=== PATIENT | male | born 1945 | race Caucasian/White ===

== ENCOUNTER → 2017-01-11 | Outpatient (CLI) | payer MEDICARE, BC | END | disposition home or self-care (01) | LOC: PCVCCLINIC 13:32 | PROVIDERS: ATTEND Internal Medicine | DX: I25.10 Atherosclerotic heart disease of native coronary artery without angina pectoris (principal); I35.0 Nonrheumatic aortic (valve) stenosis; I65.29 Occlusion and stenosis of unspecified carotid artery; I10 Essential (primary) hypertension; E78.5 Hyperlipidemia, unspecified; E11.9 Type 2 diabetes mellitus without complications | CPT/HCPCS: G0463 ==

== ENCOUNTER → 2017-07-05 | Outpatient (CLI) | payer MEDICARE, BC ==
--- NOTE | 2017-07-05 10:40 | PCVCIMAG ---
APPROVED REPORT Study performed: 07/05/2017 09:22:59 EXAM: Comprehensive 2D, Doppler, and color-flow Echocardiogram Patient Location: Echo lab Status: routine BSA: 2.30 HR: 55 bpmBP: 136/84 mmHg Rhythm: NSR Other Information Study Quality: Adequate Risk Factors: Cardiac Risk Factors: HTN, Hyperlipidemia, DM Indications Aortic Valve Disease Diabetes CAD S/P CABG. AORTIC STENOSIS 2D Dimensions LVEF(%): 65.97 (>50%) IVSd: 13.72 (7-11mm)LVOT Diam: 25.66 (18-24mm) LVDd: 54.27 mm PWd: 12.08 (7-11mm)Ascending Ao: 34.73 (22-36mm) LVDs: 34.36 (25-40mm) Left Atrium: 38.34 (27-40mm) Aortic Root: 28.25 mm LV Single Plane 4CH: 55.50 % LV Single Plane 2CH: 74.78 %Chilel's LVEF: 65.14 % Biplane EF: 67.5 % Volumes Left Atrial Volume (Systole) Single Plane 4CH: 64.21 mLSingle Plane 2CH: 94.27 mL Biplane LA Volume: 87.00 mLLA ESV Index: 38.00 mL/m2 Aortic Valve AoV Peak Darrian.: 3.37 m/s AO Peak Gr.: 44.53 mmHgLVOT Max P.92 mmHg AO Mean Gr.: 25.92 mmHgLVOT Mean P.98 mmHg AO V2 Mean: 2.41 m/sLVOT Max V: 0.93 m/s AO V2 VTI: 81.62 cm CARMEN (VTI): 1.39 [id number] V1 VTI: 22.00 cm CARMEN Vmax: 1.43 cm2 Mitral Valve E/A Ratio: 0.8 MV Decel. Time: 224.81 ms MV E Max Darrian.: 0.56 m/s MV A Darrian.: 0.68 m/s MV PHT: 65.19 ms IVRT: 100.35 ms TDI E/Lateral E': 5.60E/Medial E': 9.33 Medial E' Darrian.: 0.06 m/s Lateral E' Darrian.: 0.10 m/s Pulmonary Valve PV Peak Darrian.: 1.17 m/sPV Peak Gr.: 5.50 mmHg Pulmonary Vein P Vein S: 0.70 m/sP Vein A: 0.32 m/s P Vein D: 0.67 m/sP Vein A Dur.: 103.8 msec P Vein S/D Ratio: 1.04 Tricuspid Valve TR Peak Darrian.: 2.51 m/s TR Peak Gr.: 25.25 mmHg TV Vmax: 0.66 m/sPA Pressure: 25.00 mmHg Left Ventricle The left ventricle is normal size. There is normal LV segmental wall motion. Mild concentric left ventricular hypertrophy. Left ventricular systolic function is normal. The left ventricular ejection fraction is within the normal range. LVEF is 65-70%. Grade I - abnormal relaxation pattern. Right Ventricle The right ventricle is normal size. The right ventricular systolic function is normal. Atria Left atrium is mildly dilated. The right atrium size is normal. Aortic Valve Aortic valve is probably trileaflet, moderate aortic valve calcification Trace aortic regurgitation. Calculated aortic valve area is 1.3 cm2 with maximum pressure gradient of 40 mmHg and mean pressure gradient of 26 mmHg. Mitral Valve The mitral valve is normal in structure. There is no mitral valve regurgitation noted. No evidence of mitral valve stenosis. Tricuspid Valve The tricuspid valve is normal in structure. There is no tricuspid valve regurgitation noted. Pulmonic Valve The pulmonary valve is normal in structure. There is no pulmonic valvular regurgitation. Great Vessels The aortic root is normal in size. The ascending aorta is normal in size. IVC is normal in size and collapses with >50% inspiration Pericardium There is no pericardial effusion. There is no pleural effusion. <Conclusion> Left ventricular systolic function is normal. Mild concentric left ventricular hypertrophy. There is normal LV segmental wall motion. LVEF is 65-70%. Grade I - abnormal relaxation pattern. Aortic valve is probably trileaflet, moderate aortic valve calcification, moderate stenosis. Calculated aortic valve area is 1.3 cm2 with maximum pressure gradient of 40 mmHg and mean pressure gradient of 26 mmHg. The mitral valve is normal in structure. No mitral valve regurgitation noted. There is no pericardial effusion.
== END | disposition home or self-care (01) ==
LOC: PCVCIMAG 09:11
PROVIDERS: ATTEND Internal Medicine
DX: I25.10 Atherosclerotic heart disease of native coronary artery without angina pectoris (principal); I35.0 Nonrheumatic aortic (valve) stenosis; E78.2 Mixed hyperlipidemia; K70.30 Alcoholic cirrhosis of liver without ascites; E11.9 Type 2 diabetes mellitus without complications; I12.9 Hypertensive chronic kidney disease with stage 1 through stage 4 chronic kidney disease, or unspecified chronic kidney disease; N18.9 Chronic kidney disease, unspecified; Z95.1 Presence of aortocoronary bypass graft; Z86.718 Personal history of other venous thrombosis and embolism; Z79.82 Long term (current) use of aspirin; Z79.84 Long term (current) use of oral hypoglycemic drugs; Z79.899 Other long term (current) drug therapy; Z87.891 Personal history of nicotine dependence
CPT/HCPCS: 80061; 93005; 93306; G0463

== ENCOUNTER → 2018-01-03 | Outpatient (CLI) | payer MEDICARE, BC | END | disposition home or self-care (01) | LOC: PCVCCLINIC 11:34 | DX: I25.10 Atherosclerotic heart disease of native coronary artery without angina pectoris (principal); I35.0 Nonrheumatic aortic (valve) stenosis; E78.2 Mixed hyperlipidemia; I10 Essential (primary) hypertension; K70.30 Alcoholic cirrhosis of liver without ascites; R94.31 Abnormal electrocardiogram [ECG] [EKG]; Z95.1 Presence of aortocoronary bypass graft; Z87.891 Personal history of nicotine dependence; Z79.899 Other long term (current) drug therapy; Z79.82 Long term (current) use of aspirin; Z79.84 Long term (current) use of oral hypoglycemic drugs | CPT/HCPCS: 80061; 93005; G0463 ==

== ENCOUNTER → 2018-07-11 | Outpatient (CLI) | payer MEDICARE, BC ==
--- NOTE | 2018-07-11 09:30 | PCVCIMAG ---
APPROVED REPORT Study performed: 07/11/2018 07:43:13 EXAM: Comprehensive 2D, Doppler, and color-flow Echocardiogram Patient Location: Echo lab Room #: 2Status: routine BSA: 2.19 HR: 65 bpmBP: 128/68 mmHg Rhythm: NSR Other Information Study Quality: Good Risk Factors: Cardiac Risk Factors: HTN, Hyperlipidemia Indications Aortic Valve Disease CAD Hypertension/HDD cabg x 3 2D Dimensions IVSd: 13.96 (7-11mm)LVOT Diam: 25.09 (18-24mm) LVDd: 46.56 mm PWd: 13.76 (7-11mm)Ascending Ao: 33.61 (22-36mm) LVDs: 25.27 (25-40mm) Left Atrium: 42.81 (27-40mm) Aortic Root: 44.68 mm LV Single Plane 4CH: 55.79 % LV Single Plane 2CH: 59.16 % Biplane EF: 58.0 % Volumes Left Atrial Volume (Systole) Single Plane 4CH: 96.68 mLSingle Plane 2CH: 89.35 mL Biplane LA Volume: 97.00 mLLA ESV Index: 44.00 mL/m2 Aortic Valve AoV Peak Darrian.: 3.64 m/s AO Peak Gr.: 54.14 mmHgLVOT Max P.03 mmHg AO Mean Gr.: 29.94 mmHgLVOT Mean P.39 mmHg AO V2 Mean: 2.49 m/sLVOT Max V: 0.88 m/s AO V2 VTI: 81.00 cmLVOT Mean V: 0.55 m/s CARMEN (VTI): 1.10 [id number] V1 VTI: 18.10 cm CARMEN Vmax: 1.20 cm2 SV (LVOT): 89.48 mL Mitral Valve E/A Ratio: 0.9 MV Decel. Time: 297.90 ms MV E Max Darrian.: 0.65 m/s MV A Darrian.: 0.69 m/s IVRT: 86.51 ms Pulmonary Valve PV Peak Darrian.: 1.03 m/sPV Peak Gr.: 4.27 mmHg Pulmonary Vein P Vein S: 0.63 m/sP Vein A: 0.30 m/s P Vein D: 0.53 m/sP Vein A Dur.: 79.6 msec P Vein S/D Ratio: 1.19 Tricuspid Valve TR Peak Darrian.: 1.93 m/s TR Peak Gr.: 14.97 mmHg TV Vmax: 0.58 m/sPA Pressure: 22.00 mmHg Left Ventricle The left ventricle is normal size. There is normal LV segmental wall motion. Mild to moderate concentric left ventricular hypertrophy. Left ventricular systolic function is normal. The left ventricular ejection fraction is within the normal range. LVEF is 55-60%. The left ventricular diastolic function is normal. Right Ventricle The right ventricle is normal size. The right ventricular systolic function is normal. Atria Left atrium is moderately dilated. The right atrium size is normal. Aortic Valve Moderate aortic valve sclerosis, trileaflet. No aortic regurgitation is present. Moderate aortic stenosis. Calculated aortic valve area is 1.2 cm2 with maximum pressure gradient of 53 mmHg and mean pressure gradient of 30 mmHg. Mitral Valve The mitral valve is normal in structure. There is no mitral valve regurgitation noted. No evidence of mitral valve stenosis. Tricuspid Valve The tricuspid valve is normal in structure. Trace to mild tricuspid regurgitation with a normal PA pressure. Pulmonic Valve The pulmonary valve is normal in structure. There is no pulmonic valvular regurgitation. Great Vessels The aortic root is normal in size. The ascending aorta is normal in size. Aortic arch is not well visualized. Aortic arch is normal in caliber. IVC is normal in size and collapses >50% with inspiration. Pericardium There is no pericardial effusion. There is no pleural effusion. <Conclusion> Left ventricular systolic function is normal. There is normal LV segmental wall motion. LVEF 55-60%. Moderate aortic valve sclerosis, trileaflet. Moderate aortic stenosis. No insufficiency Calculated aortic valve area is 1.2 cm2 with maximum pressure gradient of 53 mmHg and mean pressure gradient of 30 mmHg. The mitral valve is normal in structure. No mitral valve regurgitation There is no pericardial effusion.
--- NOTE | 2018-07-11 10:16 | PCVCIMAG ---
APPROVED REPORT Indications Stenosis Risk Factors Hypertension: Diabetes Doppler Spectral Velocity Analysis PSV / EDVPSV / EDV ECA (R) 56 / 9 cm/sECA (L) 73 / 6 cm/s dICA (R) 53 / 17 cm/sdICA (L) 52 / 14 cm/s Ynes (R) 59 / 16 cm/smICA (L) 71 / 15 cm/s pICA (R) 68 / 13 cm/spICA (L) 69 / 17 cm/s Bulb (R) 63 / 15 cm/sBulb (L) 73 / 18 cm/s dCCA (R) 66 / 16 cm/sdCCA (L) 79 / 17 cm/s mCCA (R) 69 / 14 cm/smCCA (L) 78 / 13 cm/s Vert (R) 37 / 9 cm/sVert (L) 43 / 10 cm/s ICA/CCA 1.03ICA/CCA 0.90 Basic Measurements Blood Pressure: Pulses: Right Left RightLeft Brachial(Sitting) 130/56bjNb114/69mmHgTemporal Real Time B-Mode Imaging Vert. (R)AntegradeVert. (L)Antegrade Findings The right carotid bulb has moderate calcified plaque. The right proximal internal carotid artery shows <40% stenosis. The right common carotid artery shows no significant stenosis. The right external carotid artery shows no significant stenosis. The left carotid bulb has moderate calcified plaque. The left proximal internal carotid artery shows <40% stenosis. The left common carotid artery shows no significant stenosis. The left external carotid artery shows no significant stenosis. Conclusion 1. Right internal carotid artery stenosis (<40%) 2. Left internal carotid artery stenosis (<40%) 3. Antegreade vertebral flow
--- NOTE | 2018-07-11 12:16 | PCVCIMAG ---
EXAM: BILATERAL LOWER EXTREMITY ARTERIAL DUPLEX INDICATION: Peripheral Arterial Disease. Leg pain. Nonhealing ulcer left lower leg. FINDINGS: Right Leg: Satisfactory arterial waveforms throughout the common/profunda/superficial femoral, popliteal, anterior tibial, peroneal, and posterior tibial arteries. No flow limiting stenosis seen. Left Leg: Satisfactory arterial waveforms throughout the common/profunda/superficial femoral, popliteal, anterior tibial, peroneal, and posterior tibial arteries. No flow limiting stenosis seen. IMPRESSION: No flow limiting stenosis in the right lower extremity. No flow limiting stenosis in the left lower extremity. LOC:[id number]
== END | disposition home or self-care (01) ==
LOC: PCVCIMAG 09:46
PROVIDERS: ATTEND Internal Medicine
DX: I65.23 Occlusion and stenosis of bilateral carotid arteries (principal); L97.921 Non-pressure chronic ulcer of unspecified part of left lower leg limited to breakdown of skin; I73.9 Peripheral vascular disease, unspecified; I25.10 Atherosclerotic heart disease of native coronary artery without angina pectoris; I35.0 Nonrheumatic aortic (valve) stenosis; E78.5 Hyperlipidemia, unspecified; I10 Essential (primary) hypertension; K70.30 Alcoholic cirrhosis of liver without ascites; E11.9 Type 2 diabetes mellitus without complications; Z95.1 Presence of aortocoronary bypass graft; Z87.891 Personal history of nicotine dependence; Z79.82 Long term (current) use of aspirin; Z79.84 Long term (current) use of oral hypoglycemic drugs
CPT/HCPCS: 80061; 93005; 93306; 93880; 93925; G0463

== ENCOUNTER → 2019-01-16 | Outpatient (CLI) | payer MEDICARE, BC | END | disposition home or self-care (01) | LOC: PCVCCLINIC 14:22 | PROVIDERS: ATTEND Internal Medicine | DX: I25.10 Atherosclerotic heart disease of native coronary artery without angina pectoris (principal); I35.0 Nonrheumatic aortic (valve) stenosis; E78.5 Hyperlipidemia, unspecified; K70.30 Alcoholic cirrhosis of liver without ascites; I12.9 Hypertensive chronic kidney disease with stage 1 through stage 4 chronic kidney disease, or unspecified chronic kidney disease; N18.9 Chronic kidney disease, unspecified; Z79.82 Long term (current) use of aspirin; Z87.891 Personal history of nicotine dependence; Z95.1 Presence of aortocoronary bypass graft | CPT/HCPCS: 36415; 80061; 93005; G0463 ==

== ENCOUNTER → 2019-07-19 | Outpatient (CLI) | payer MEDICARE, BC ==
--- NOTE | 2019-07-19 14:22 | PCVCIMAG ---
APPROVED REPORT Study performed: 07/19/2019 13:13:53 EXAM: Comprehensive 2D, Doppler, and color-flow Echocardiogram Patient Location: Echo lab Room #: 2Status: routine BSA: 2.30 HR: 66 bpmBP: 134/80 mmHg Rhythm: NSR Other Information Study Quality: Adequate Risk Factors: Cardiac Risk Factors: HTN, Hyperlipidemia Indications Aortic Valve Disease CAD S/P CABG x3 (2003) 2D Dimensions IVSd: 11.51 (7-11mm)LVOT Diam: 25.00 (18-24mm) LVDd: 55.95 mm PWd: 11.71 (7-11mm)Ascending Ao: 34.79 (22-36mm) LVDs: 29.76 (25-40mm) Left Atrium: 47.84 (27-40mm) Aortic Root: 37.47 mm LV Single Plane 4CH: 50.55 % LV Single Plane 2CH: 56.26 % Biplane EF: 53.7 % Volumes Left Atrial Volume (Systole) Single Plane 4CH: 78.18 mLSingle Plane 2CH: 69.15 mL LA ESV Index: 33.00 mL/m2 Aortic Valve AoV Peak Darrian.: 3.71 m/s AO Peak Gr.: 55.13 mmHgLVOT Max P.91 mmHg AO Mean Gr.: 33.13 mmHgLVOT Mean P.29 mmHg AO V2 Mean: 2.76 m/sLVOT Max V: 0.99 m/s AO V2 VTI: 99.30 cmLVOT Mean V: 0.72 m/s CARMEN (VTI): 1.28 [id number] V1 VTI: 26.56 cm CARMEN Vmax: 1.28 cm2 SV (LVOT): 127.32 mL Mitral Valve E/A Ratio: 1.0 MV Decel. Time: 330.56 ms MV E Max Darrian.: 0.71 m/s MV A Darrian.: 0.74 m/s IVRT: 79.58 ms TDI E/Lateral E': 8.88E/Medial E': 11.83 Medial E' Darrian.: 0.06 m/s Lateral E' Darrian.: 0.08 m/s Pulmonary Valve PV Peak Darrian.: 1.26 m/sPV Peak Gr.: 6.31 mmHg Pulmonary Vein P Vein S: 0.77 m/sP Vein A: 0.35 m/s P Vein D: 0.76 m/sP Vein A Dur.: 134.9 msec P Vein S/D Ratio: 1.01 Tricuspid Valve TR Peak Darrian.: 2.56 m/sRAP Estimate: 7.00 mmHg TR Peak Gr.: 26.19 mmHg PA Pressure: 33.00 mmHg Left Ventricle The left ventricle is normal size. There is normal LV segmental wall motion. Mild concentric left ventricular hypertrophy. Left ventricular systolic function is normal. The left ventricular ejection fraction is within the normal range. LVEF is 55%. Mild diastolic dysfunction is present (impaired relaxation pattern). Right Ventricle The right ventricle is normal size. The right ventricular systolic function is normal. Atria The left atrium size is normal. The right atrium size is normal. Aortic Valve Aortic valve is slightly calcified, moderate to moderately severely stenotic No aortic regurgitation is present. The maximum aortic valve pressure gradient is 55 mmHg and the mean pressure gradient is 33 mmHg. The calculated aortic valve area is 1.3 cm2. Mitral Valve The mitral valve is normal in structure. Trace mitral regurgitation. No evidence of mitral valve stenosis. Tricuspid Valve The tricuspid valve is normal in structure. Trace to mild tricuspid regurgitation. Pulmonary artery pressure is 30 mmHg. Pulmonic Valve The pulmonary valve is normal in structure. Trace pulmonic regurgitation. Great Vessels The aortic root is normal in size. The ascending aorta is normal in size. IVC is normal in size and collapses >50% with inspiration. Pericardium There is no pericardial effusion. <Conclusion> Left ventricular systolic function is normal. There is normal LV segmental wall motion. LVEF is 55%. Mild diastolic dysfunction Aortic valve is slightly calcified, moderate to moderately severely stenotic The maximum aortic valve pressure gradient is 55 mmHg and the mean pressure gradient is 33 mmHg. The calculated aortic valve area is 1.3 cm2. The mitral valve is normal in structure. Trace mitral regurgitation. Trace to mild tricuspid regurgitation. Pulmonary artery pressure of 30 mmHg. There is no pericardial effusion. Similar to a study dated May 2018
== END | disposition home or self-care (01) ==
LOC: PCVCIMAG 13:44
PROVIDERS: ATTEND Internal Medicine
DX: I08.3 Combined rheumatic disorders of mitral, aortic and tricuspid valves (principal); I11.9 Hypertensive heart disease without heart failure; I25.10 Atherosclerotic heart disease of native coronary artery without angina pectoris; E78.5 Hyperlipidemia, unspecified; E11.9 Type 2 diabetes mellitus without complications; K70.30 Alcoholic cirrhosis of liver without ascites; I65.23 Occlusion and stenosis of bilateral carotid arteries; Z95.1 Presence of aortocoronary bypass graft; Z88.8 Allergy status to other drugs, medicaments and biological substances; Z87.891 Personal history of nicotine dependence; Z79.82 Long term (current) use of aspirin; Z79.899 Other long term (current) drug therapy; Z79.84 Long term (current) use of oral hypoglycemic drugs
CPT/HCPCS: 93005; 93306; G0463